=== PATIENT | male | born 1940 | race Caucasian/White ===

== ENCOUNTER → 2019-11-13 | Outpatient (CLI) | payer OTHER | LOC: SJCVC 16:56 | DX: I45.2 Bifascicular block (principal); I44.0 Atrioventricular block, first degree; I48.91 Unspecified atrial fibrillation; I10 Essential (primary) hypertension; R94.31 Abnormal electrocardiogram [ECG] [EKG]; E78.00 Pure hypercholesterolemia, unspecified; E11.9 Type 2 diabetes mellitus without complications; I73.9 Peripheral vascular disease, unspecified; Z79.899 Other long term (current) drug therapy ==

== ENCOUNTER → 2020-08-13 | Outpatient (CLI) | payer OTHER | LOC: SJCVC 09:29 | PROVIDERS: ATTEND Internal Medicine Cardiovascular Disease | DX: R94.31 Abnormal electrocardiogram [ECG] [EKG] (principal); I48.0 Paroxysmal atrial fibrillation; I10 Essential (primary) hypertension; E78.00 Pure hypercholesterolemia, unspecified; I44.0 Atrioventricular block, first degree; I45.2 Bifascicular block; R00.1 Bradycardia, unspecified; D68.69 Other thrombophilia; I48.91 Unspecified atrial fibrillation; E11.9 Type 2 diabetes mellitus without complications; Z79.4 Long term (current) use of insulin ==

== ENCOUNTER → 2021-02-24 | Outpatient (CLI) | payer OTHER | LOC: SJCVC 10:00 | PROVIDERS: ATTEND Internal Medicine Cardiovascular Disease | DX: R94.31 Abnormal electrocardiogram [ECG] [EKG] (principal); I44.0 Atrioventricular block, first degree; I45.2 Bifascicular block; I11.9 Hypertensive heart disease without heart failure; I48.0 Paroxysmal atrial fibrillation; R00.1 Bradycardia, unspecified; E78.00 Pure hypercholesterolemia, unspecified; E11.9 Type 2 diabetes mellitus without complications; D68.69 Other thrombophilia; I48.91 Unspecified atrial fibrillation; I77.9 Disorder of arteries and arterioles, unspecified; Z72.89 Other problems related to lifestyle; Z79.4 Long term (current) use of insulin; Z79.899 Other long term (current) drug therapy ==

== ENCOUNTER → 2021-07-17 | Outpatient (CLI) | payer OTHER | LOC: SJCVC 11:04 → SJCVCIMAG 11:04 | PROVIDERS: ATTEND Internal Medicine Cardiovascular Disease | DX: I45.2 Bifascicular block (principal); R94.31 Abnormal electrocardiogram [ECG] [EKG]; I48.0 Paroxysmal atrial fibrillation; I10 Essential (primary) hypertension; E78.00 Pure hypercholesterolemia, unspecified; E11.9 Type 2 diabetes mellitus without complications; D68.69 Other thrombophilia; I48.91 Unspecified atrial fibrillation; M79.604 Pain in right leg; M79.605 Pain in left leg; I77.9 Disorder of arteries and arterioles, unspecified; Z72.89 Other problems related to lifestyle; Z79.899 Other long term (current) drug therapy; Z79.84 Long term (current) use of oral hypoglycemic drugs ==

== ENCOUNTER → 2021-08-19 | Outpatient (CLI) | payer OTHER | LOC: SJCVCIMAG 07:44 | PROVIDERS: ATTEND Internal Medicine Cardiovascular Disease | DX: I07.1 Rheumatic tricuspid insufficiency (principal); I11.9 Hypertensive heart disease without heart failure; E11.9 Type 2 diabetes mellitus without complications; E78.00 Pure hypercholesterolemia, unspecified; Z72.89 Other problems related to lifestyle; Z79.84 Long term (current) use of oral hypoglycemic drugs; Z79.899 Other long term (current) drug therapy ==